=== PATIENT | male | born 1935 | race Caucasian/White ===

== ENCOUNTER 2018-02-22 17:05 | Inpatient (IN) | payer MEDICARE, MEDICAID ==
[~2018-02-22] VITALS: Ht 182.9 cm; Wt 75.3 kg
[~2018-02-22 17:05] MED LIST: ATOR10TA84 PO; CARB1TAB35 PO; CARB200T6 PO; LISI-660 PO
[2018-02-22] MEDS ORDERED: ACETAMINOPHEN 325 MG TABLET PO PRN (20:45)
[2018-02-22] MEDS ORDERED: DOCUSATE SODIUM 283 MG/5 ML MINI-ENEMA PR PRN (20:45)
[2018-02-22] MEDS ORDERED: MAGNESIUM HYDROXIDE SUSPENSION 30 ML UDCUP PO PRN (20:45)
[2018-02-22 22:06] VITALS: BP 120/84
[2018-02-22 22:10] VITALS: BP 120/84
[2018-02-22 22:14] VITALS: BP_SYST 130; BP_SYST 135; BP_DIAS 70; BP_DIAS 78
[2018-02-22] MEDS: HEPARIN SODIUM,PORCINE 5,000 UNITS/ML VIAL SQ SCH (22:16)
[2018-02-22] MEDS: CARBIDOPA/LEVODOPA 25-100 MG TABLET PO SCH (22:16)
[2018-02-22] MEDS: ATORVASTATIN CALCIUM 20 MG TABLET PO SCH (22:16)
[2018-02-22] MEDS: DOCUSATE SODIUM 100 MG CAPSULE PO SCH (22:16)
[2018-02-22] MEDS: SENNA 187 MG TABLET PO SCH (22:16)
[2018-02-22] MEDS: CarBAMazepine 200 MG TABLET PO SCH (22:16)
[2018-02-22 22:26] LABS: APPEARANCE,URINE CLEAR (CLEAR); GLUCOSE, URINE (UA) NEGATIVE (NEGATIVE); KETONES,URINE 15 mg/dL (NEGATIVE); LEUKOCYTE ESTERASE ,URINE TRACE (NEGATIVE); NITRATE,URINE NEGATIVE (NEGATIVE); OCCULT BLOOD,URINE NEGATIVE (NEGATIVE); PROTEIN,URINE POS 1+ (NEGATIVE)
[2018-02-22 22:27] LABS: BILIRUBIN,URINE PRELIM. POSITIVE (NEGATIVE)
[2018-02-22 22:40] LABS: RBC,URINE 0-2 /HPF (0-2)
[2018-02-22 22:42] LABS: BACTERIA,URINE None Seen /HPF (None Seen)
[2018-02-22 22:43] LABS: CALCIUM OXALATE CRYSTALS,UR Few /LPF (None Seen); SQUAMOUS EPITHELIAL CELL,UR Rare /LPF (None Seen)
[2018-02-22 23:05] VITALS: BP 183/88
[2018-02-22] MEDS: CloNIDine HCL 0.1 MG TABLET PO PRN (23:14)
[2018-02-23] VITALS (14 sets, daily range): BP systolic 81–199; BP diastolic 47–92
[2018-02-23] MEDS: ACETAMINOPHEN 325 MG TABLET PO PRN (04:34)
[2018-02-23 06:27] LABS: BASOPHILS % (AUTO) 0.9 % (0.0-2.0); EOSINOPHILS % (AUTO) 4.6 % (1.0-6.0); HEMATOCRIT 36.2 % (41-53); HEMOGLOBIN 12.5 g/dL (13.5-17.5); LYMPHOCYTES % (AUTO) 20.9 % (22.0-44.0); MEAN CORPUSCULAR HGB CONC 34.4 G/dL (31.0-37.0); MEAN CORPUSCULAR VOLUME 99 fL (80-100); MONOCYTES # (AUTO) 0.4 K/uL (0.1-1.0); MONOCYTES % (AUTO) 8.5 % (2.0-9.0); NEUTROPHILS # (AUTO) 3.2 K/uL (1.8-7.7); NEUTROPHILS % (AUTO) 65.1 % (40.0-70.0); PLATELET COUNT (AUTO) 219 K/uL (150-450); RED BLOOD CELL COUNT(AUTO) 3.67 MIL/uL (4.50-5.90); RED CELL DISTRIBUTION WIDTH 13.3 % (11.5-14.5)
[2018-02-23 07:00] LABS: ALANINE AMINOTRANSFERASE 9 U/L (12-78); ALBUMIN 3.1 g/dL (3.4-5.0); ALKALINE PHOSPHATASE 62 U/L (46-116); ANION GAP 7 mmol/L (8-16); ASPARTATE AMINOTRANSFERASE 15 U/L (15-37); BILIRUBIN,TOTAL 0.5 mg/dL (0.1-1.0); CALCIUM, TOTAL 8.3 mg/dL (8.8-10.5); CARBON DIOXIDE 28 mmol/L (22-29); CHLORIDE 105 mmol/L (98-107); CREATININE 0.87 mg/dL (0.60-1.30); GLOMERULAR FILTR. RATE CALC > 60 mL/min (>60); GLUCOSE,RANDOM 85 mg/dL (70-110); POTASSIUM 3.7 mmol/L (3.5-5.1); SODIUM SERUM 140 mmol/L (136-145); TOTAL PROTEIN, SERUM 6.2 g/dL (6.4-8.2); UREA NITROGEN, BLOOD 17 mg/dL (7-18)
[2018-02-23] MEDS: PANTOPRAZOLE SODIUM 40 MG DR TABLET PO SCH (08:47)
[2018-02-23] MEDS: CarBAMazepine 200 MG TABLET PO SCH ×3 (08:48→21:10)
[2018-02-23] MEDS: CHOLECALCIFEROL (VIT D3) 1,000 UNITS TABLET PO SCH (08:48)
[2018-02-23] MEDS: HEPARIN SODIUM,PORCINE 5,000 UNITS/ML VIAL SQ SCH ×3 (08:48→21:12)
[2018-02-23] MEDS: ASPIRIN 81 MG CHEWABLE TABLET PO SCH (08:48)
[2018-02-23] MEDS: CARBIDOPA/LEVODOPA 25-100 MG TABLET PO SCH ×2 (08:48→21:10)
[2018-02-23] MEDS: DOCUSATE SODIUM 100 MG CAPSULE PO SCH ×2 (08:49→21:10)
[2018-02-23] MEDS: SENNA 187 MG TABLET PO SCH (21:09)
[2018-02-23] MEDS: ATORVASTATIN CALCIUM 20 MG TABLET PO SCH (21:11)
[2018-02-23] MEDS: CloNIDine HCL 0.1 MG TABLET PO PRN (23:49)
[2018-02-24] VITALS (14 sets, daily range): BP systolic 77–201; BP diastolic 36–113
[2018-02-24] MEDS: ACETAMINOPHEN 325 MG TABLET PO PRN (07:25)
[2018-02-24] MEDS: CARBIDOPA/LEVODOPA 25-100 MG TABLET PO SCH ×2 (08:27→21:18)
[2018-02-24] MEDS: HEPARIN SODIUM,PORCINE 5,000 UNITS/ML VIAL SQ SCH ×3 (08:27→21:18)
[2018-02-24] MEDS: CarBAMazepine 200 MG TABLET PO SCH ×3 (08:27→21:18)
[2018-02-24] MEDS: ASPIRIN 81 MG CHEWABLE TABLET PO SCH (08:27)
[2018-02-24] MEDS: CHOLECALCIFEROL (VIT D3) 1,000 UNITS TABLET PO SCH (08:27)
[2018-02-24] MEDS: PANTOPRAZOLE SODIUM 40 MG DR TABLET PO SCH (08:27)
[2018-02-24] MEDS: DOCUSATE SODIUM 100 MG CAPSULE PO SCH ×2 (08:28→21:18)
[2018-02-24] MEDS ORDERED: MIDODRINE HCL 2.5 MG TABLET PO SCH (21:00)
[2018-02-24] MEDS: SENNA 187 MG TABLET PO SCH (21:18)
[2018-02-24] MEDS: ATORVASTATIN CALCIUM 20 MG TABLET PO SCH (21:18)
[2018-02-25] VITALS (9 sets, daily range): BP systolic 99–212; BP diastolic 60–120
[2018-02-25] MEDS: ACETAMINOPHEN 325 MG TABLET PO PRN ×2 (03:03→20:49)
[2018-02-25] MEDS: MIDODRINE HCL 2.5 MG TABLET PO SCH ×3 (09:00→21:00)
[2018-02-25] MEDS: CARBIDOPA/LEVODOPA 25-100 MG TABLET PO SCH (09:05)
[2018-02-25] MEDS: ASPIRIN 81 MG CHEWABLE TABLET PO SCH (09:05)
[2018-02-25] MEDS: PANTOPRAZOLE SODIUM 40 MG DR TABLET PO SCH (09:05)
[2018-02-25] MEDS: DOCUSATE SODIUM 100 MG CAPSULE PO SCH ×2 (09:05→20:48)
[2018-02-25] MEDS: CarBAMazepine 200 MG TABLET PO SCH ×3 (09:05→20:47)
[2018-02-25] MEDS: CHOLECALCIFEROL (VIT D3) 1,000 UNITS TABLET PO SCH (09:06)
[2018-02-25] MEDS: HEPARIN SODIUM,PORCINE 5,000 UNITS/ML VIAL SQ SCH ×3 (09:06→20:50)
[2018-02-25] MEDS: HYPROMELLOSE 0.5% 15 ML OPHTHALMIC SOLUTION OU PRN (11:16)
[2018-02-25] MEDS: SENNA 187 MG TABLET PO SCH (20:48)
[2018-02-25] MEDS: ATORVASTATIN CALCIUM 20 MG TABLET PO SCH (20:48)
[2018-02-25] MEDS: MELATONIN 3 MG TABLET PO PRN (20:48)
[2018-02-25] MEDS: CARBIDOPA/LEVODOPA 25-100 MG ER TABLET PO SCH (21:05)
[2018-02-25] MEDS: CloNIDine HCL 0.1 MG TABLET PO PRN (23:32)
[2018-02-26] VITALS (12 sets, daily range): BP systolic 89–190; BP diastolic 53–97
[2018-02-26] MEDS: MIDODRINE HCL 2.5 MG TABLET PO SCH ×2 (09:09→20:39)
[2018-02-26] MEDS: PANTOPRAZOLE SODIUM 40 MG DR TABLET PO SCH (09:09)
[2018-02-26] MEDS: ASPIRIN 81 MG CHEWABLE TABLET PO SCH (09:09)
[2018-02-26] MEDS: DOCUSATE SODIUM 100 MG CAPSULE PO SCH ×2 (09:09→20:39)
[2018-02-26] MEDS: HEPARIN SODIUM,PORCINE 5,000 UNITS/ML VIAL SQ SCH ×3 (09:09→20:38)
[2018-02-26] MEDS: CarBAMazepine 200 MG TABLET PO SCH ×3 (09:09→20:39)
[2018-02-26] MEDS: CARBIDOPA/LEVODOPA 25-100 MG ER TABLET PO SCH ×3 (09:10→20:39)
[2018-02-26] MEDS: CHOLECALCIFEROL (VIT D3) 1,000 UNITS TABLET PO SCH (09:10)
[2018-02-26] MEDS: HYPROMELLOSE 0.5% 15 ML OPHTHALMIC SOLUTION OU PRN (16:20)
[2018-02-26] MEDS: ATORVASTATIN CALCIUM 20 MG TABLET PO SCH (20:39)
[2018-02-26] MEDS: SENNA 187 MG TABLET PO SCH (20:39)
[2018-02-26] MEDS: MELATONIN 3 MG TABLET PO PRN (21:26)
[2018-02-27] VITALS (7 sets, daily range): BP systolic 56–160; BP diastolic 39–117
[2018-02-27] MEDS: ACETAMINOPHEN 325 MG TABLET PO PRN (02:14)
[2018-02-27] MEDS: CarBAMazepine 200 MG TABLET PO SCH ×3 (08:33→21:06)
[2018-02-27] MEDS: CARBIDOPA/LEVODOPA 25-100 MG ER TABLET PO SCH ×3 (08:33→21:06)
[2018-02-27] MEDS: HEPARIN SODIUM,PORCINE 5,000 UNITS/ML VIAL SQ SCH ×3 (08:34→21:05)
[2018-02-27] MEDS: PANTOPRAZOLE SODIUM 40 MG DR TABLET PO SCH (08:34)
[2018-02-27] MEDS: DOCUSATE SODIUM 100 MG CAPSULE PO SCH ×2 (08:34→21:06)
[2018-02-27] MEDS: MIDODRINE HCL 2.5 MG TABLET PO SCH ×2 (08:34→21:05)
[2018-02-27] MEDS: CHOLECALCIFEROL (VIT D3) 1,000 UNITS TABLET PO SCH (08:34)
[2018-02-27] MEDS: ASPIRIN 81 MG CHEWABLE TABLET PO SCH (08:34)
[2018-02-27] MEDS: ATORVASTATIN CALCIUM 20 MG TABLET PO SCH (21:05)
[2018-02-27] MEDS: MELATONIN 3 MG TABLET PO PRN (21:06)
[2018-02-27] MEDS: SENNA 187 MG TABLET PO SCH (21:06)
[2018-02-28] VITALS (11 sets, daily range): BP systolic 90–209; BP diastolic 52–112
[2018-02-28] MEDS: ACETAMINOPHEN 325 MG TABLET PO PRN (01:08)
[2018-02-28] MEDS: CloNIDine HCL 0.1 MG TABLET PO PRN (01:18)
[2018-02-28] MEDS ORDERED: PROP15DR OP (01:40)
[2018-02-28] MEDS ORDERED: MV-M1TAB20 PO (01:40)
[2018-02-28] MEDS ORDERED: ASPI81 PO (01:40)
[2018-02-28] MEDS ORDERED: MIRALAX PO (01:40)
[2018-02-28] MEDS: MIDODRINE HCL 2.5 MG TABLET PO SCH ×2 (09:19→18:00)
[2018-02-28] MEDS: ASPIRIN 81 MG CHEWABLE TABLET PO SCH (09:20)
[2018-02-28] MEDS: CarBAMazepine 200 MG TABLET PO SCH ×3 (09:20→21:23)
[2018-02-28] MEDS: CARBIDOPA/LEVODOPA 25-100 MG ER TABLET PO SCH ×3 (09:20→21:23)
[2018-02-28] MEDS: HEPARIN SODIUM,PORCINE 5,000 UNITS/ML VIAL SQ SCH ×3 (09:20→21:25)
[2018-02-28] MEDS: PANTOPRAZOLE SODIUM 40 MG DR TABLET PO SCH (09:20)
[2018-02-28] MEDS: CHOLECALCIFEROL (VIT D3) 1,000 UNITS TABLET PO SCH (09:20)
[2018-02-28] MEDS: DOCUSATE SODIUM 250 MG CAPSULE PO SCH ×2 (09:20→21:23)
[2018-02-28] MEDS: DICLOFENAC SODIUM 1% 100 GM GEL [4GM] TP SCH ×2 (16:44→21:25)
[2018-02-28] MEDS: SENNA 187 MG TABLET PO SCH (21:23)
[2018-02-28] MEDS: TraZODone HCL 50 MG TABLET PO SCH (21:23)
[2018-02-28] MEDS: ATORVASTATIN CALCIUM 20 MG TABLET PO SCH (21:23)
[2018-03-01] VITALS (11 sets, daily range): BP systolic 66–213; BP diastolic 29–117
[2018-03-01] MEDS: CloNIDine HCL 0.1 MG TABLET PO PRN (02:30)
[2018-03-01 06:56] LABS: ANION GAP 5 mmol/L (8-16); CALCIUM, TOTAL 8.6 mg/dL (8.8-10.5); CARBON DIOXIDE 30 mmol/L (22-29); CHLORIDE 103 mmol/L (98-107); CREATININE 0.87 mg/dL (0.60-1.30); GLUCOSE,RANDOM 86 mg/dL (70-110); POTASSIUM 4.1 mmol/L (3.5-5.1); SODIUM SERUM 138 mmol/L (136-145); UREA NITROGEN, BLOOD 24 mg/dL (7-18)
[2018-03-01 06:59] LABS: GLOMERULAR FILTR. RATE CALC > 60 mL/min (>60)
[2018-03-01] MEDS: PANTOPRAZOLE SODIUM 40 MG DR TABLET PO SCH (08:05)
[2018-03-01] MEDS: MIDODRINE HCL 2.5 MG TABLET PO SCH ×2 (08:05→18:00)
[2018-03-01] MEDS: DOCUSATE SODIUM 250 MG CAPSULE PO SCH ×2 (08:05→20:31)
[2018-03-01] MEDS: CarBAMazepine 200 MG TABLET PO SCH ×3 (08:05→20:31)
[2018-03-01] MEDS: CHOLECALCIFEROL (VIT D3) 1,000 UNITS TABLET PO SCH (08:05)
[2018-03-01] MEDS: ASPIRIN 81 MG CHEWABLE TABLET PO SCH (08:06)
[2018-03-01] MEDS: DICLOFENAC SODIUM 1% 100 GM GEL [4GM] TP SCH ×3 (08:06→20:30)
[2018-03-01] MEDS: HEPARIN SODIUM,PORCINE 5,000 UNITS/ML VIAL SQ SCH ×3 (08:06→20:31)
[2018-03-01] MEDS: CARBIDOPA/LEVODOPA 25-100 MG ER TABLET PO SCH ×3 (08:10→21:12)
[2018-03-01] MEDS: SENNA 187 MG TABLET PO SCH (20:31)
[2018-03-01] MEDS: ATORVASTATIN CALCIUM 20 MG TABLET PO SCH (20:31)
[2018-03-01] MEDS: TraZODone HCL 50 MG TABLET PO SCH (20:31)
[2018-03-02 00:03] VITALS: BP 152/82
[2018-03-02 08:45] VITALS: BP_SYST 159; BP_SYST 165; BP_SYST 91; BP_DIAS 44; BP_DIAS 87; BP_DIAS 88
[2018-03-02 08:50] VITALS: BP 159/87
[2018-03-02 09:00] VITALS: BP 91/44
[2018-03-02] MEDS: DICLOFENAC SODIUM 1% 100 GM GEL [4GM] TP SCH (09:00)
[2018-03-02 09:16] VITALS: BP 119/61
[2018-03-02] MEDS: CHOLECALCIFEROL (VIT D3) 1,000 UNITS TABLET PO SCH (09:24)
[2018-03-02] MEDS: MIDODRINE HCL 2.5 MG TABLET PO SCH (09:24)
[2018-03-02] MEDS: PANTOPRAZOLE SODIUM 40 MG DR TABLET PO SCH (09:25)
[2018-03-02] MEDS: DOCUSATE SODIUM 250 MG CAPSULE PO SCH (09:25)
[2018-03-02] MEDS: CarBAMazepine 200 MG TABLET PO SCH (09:25)
[2018-03-02] MEDS: ASPIRIN 81 MG CHEWABLE TABLET PO SCH (09:25)
[2018-03-02] MEDS: CARBIDOPA/LEVODOPA 25-100 MG ER TABLET PO SCH (09:25)
[2018-03-02] MEDS: HEPARIN SODIUM,PORCINE 5,000 UNITS/ML VIAL SQ SCH (09:26)
== END 2018-03-02 14:05 | DRG 57 ==
LOC: 2WR 19:00
PROVIDERS: ADMIT Physical Medicine & Rehabilitation; ATTEND Physical Medicine & Rehabilitation
DX: G20 Parkinson's disease (principal); F33.1 Major depressive disorder, recurrent, moderate; N40.0 Benign prostatic hyperplasia without lower urinary tract symptoms; I10 Essential (primary) hypertension; G40.909 Epilepsy, unspecified, not intractable, without status epilepticus; E78.00 Pure hypercholesterolemia, unspecified; E78.5 Hyperlipidemia, unspecified; E55.9 Vitamin D deficiency, unspecified; R29.6 Repeated falls; I95.1 Orthostatic hypotension; K59.00 Constipation, unspecified; N40.1 Benign prostatic hyperplasia with lower urinary tract symptoms; R33.8 Other retention of urine; N31.9 Neuromuscular dysfunction of bladder, unspecified; G47.00 Insomnia, unspecified; D63.8 Anemia in other chronic diseases classified elsewhere; S00.83XA Contusion of other part of head, initial encounter; W19.XXXA Unspecified fall, initial encounter; Z91.81 History of falling; Z90.49 Acquired absence of other specified parts of digestive tract; Y93.89 Activity, other specified; Y92.89 Other specified places as the place of occurrence of the external cause; Y99.8 Other external cause status
CPT/HCPCS: 73503; 76770; 84153; 87081; 92523; 97110; 97112; 97116; 97162; 97166; 97530; 97535; 99366; J1644